=== PATIENT | male | born 1970 | race Caucasian/White ===

== ENCOUNTER 2019-02-18 06:00 | Inpatient (IN) | payer OTHER ==
[~2019-02-18] VITALS: Ht 188 cm; Wt 126.1 kg
[~2019-02-18 06:00] MED LIST: CLONAZEPAM2 M1 PO; LISINOP PO
[2019-02-19] MEDS ORDERED: ZOLPIDEM TARTRA10 MG PO (11:57)
[2019-02-19] MEDS ORDERED: LISINOPRIL40 MG PO (11:57)
[2019-02-19] MEDS ORDERED: GABAPENTIN600 MG PO (11:58)
[2019-02-19] MEDS ORDERED: NAPROXEN500 MG PO (11:58)
[2019-02-20] MEDS ORDERED: MIRALAX17 GM PO (10:01)
[2019-02-20] MEDS ORDERED: PERCOCET 5-3251 EACH PO (10:01)
== END 2019-02-20 11:19 | disposition home or self-care (01) | DRG 353 ==
LOC: CIR.AMB 06:00 → O/R 13:02 → SURG 13:35 → CIR.AMB 14:00 → SURG 02-20 11:19
PROVIDERS: ADMIT Surgery
PROC: 0WUF4JZ Supplement Abdominal Wall with Synthetic Substitute, Percutaneous Endoscopic Approach (ICD-10-PCS; principal; 2019-02-18 14:00)
PROC: 0DQU4ZZ Repair Omentum, Percutaneous Endoscopic Approach (ICD-10-PCS; 2019-02-18 14:00)
DX: K42.0 Umbilical hernia with obstruction, without gangrene (principal); K63.1 Perforation of intestine (nontraumatic); K91.71 Accidental puncture and laceration of a digestive system organ or structure during a digestive system procedure; I10 Essential (primary) hypertension; E66.09 Other obesity due to excess calories; R53.1 Weakness